=== PATIENT | female | born 1950 | race Caucasian/White ===

== ENCOUNTER → 2016-09-29 | Outpatient (CLI) | payer MEDICARE ==
[~2016-09-29] MED LIST: VITAMIN D PO
--- NOTE | 2016-09-29 15:59 | REP ---
REASON: Followup thyroid nodules. COMPARISON: Latest prior 08/26/2015. The patient is status post right thyroid lobectomy. Once again, there are three nodules in the left lobe, one cystic measuring 4 mm and two others subcentimeter and all stable. The left lobe of the thyroid gland measures 3.7 x 1.2 x 1.4 cm and the imaged portion of the isthmus measures 2 mm. The technologist imaged a 4 mm size area of increased echoes which was felt to be in the sternohyoid muscle. I cannot confirm this by imaging. IMPRESSION: 1. Stable thyroid gland as described above. 2. Bizarre appearing echogenic area of uncertain etiology. Although it appears to be intramuscular and possibly a lipoma this cannot be stated with certainty. Contrast enhanced neck CT is recommended. Signed by Jude Lam DO 09/29/2016 04:12 P
== END ==
LOC: M RAD 12:31
PROVIDERS: ATTEND Otolaryngology
DX: E04.1 Nontoxic single thyroid nodule (principal); R93.8 Abnormal findings on diagnostic imaging of other specified body structures

== ENCOUNTER → 2016-10-14 | Outpatient (CLI) | payer MEDICARE ==
[2016-10-14 10:09] LABS: CREATININE FOR GFR 0.81 MG/DL (0.55-1.02); GLOMERULAR FILTRATION RATE > 60.0 (>45)
[2016-10-19 06:53] LABS: BLOOD UREA NITROGEN 14 MG/DL (7-18)
== END ==
LOC: M LAB 08:54
PROVIDERS: ATTEND Otolaryngology
DX: R22.1 Localized swelling, mass and lump, neck (principal)

== ENCOUNTER → 2016-10-18 | Outpatient (CLI) | payer MEDICARE ==
[~2016-10-18] MED LIST changes: +ISOVUE-370 76% 100ML VIAL (Q9967) As Ordered ONE
--- NOTE | 2016-10-18 13:58 | REP ---
CT NECK WITH CONTRAST: HISTORY: Neck mass. CONTRAST: Isovue 370, 75 mL. Calcification is present in the right tonsil. This is secondary to previous inflammatory disease. The naso-, franklyn-, and hypopharynx, larynx and subglottic trachea are otherwise normal in appearance. The salivary glands are normal. The patient is status post right thyroidectomy. The left thyroid lobe is normal. Small lymph nodes less than 1 cm in size are present in the internal jugular chains, posterior triangles, submandibular and submental areas. Degenerative change is present in the cervical spine. Scarring is present in the lung apices. The visualized sinuses are clear. IMPRESSION: 1. The patient is status post right thyroidectomy. 2. There is no neck mass or adenopathy. Signed by Roshan Alas MD 10/18/2016 02:04 P
== END ==
LOC: M RAD 12:33
PROVIDERS: ATTEND Otolaryngology
DX: R22.1 Localized swelling, mass and lump, neck (principal)
CPT/HCPCS: 70491; Q9967

== ENCOUNTER → 2017-09-19 | Outpatient (CLI) | payer MEDICARE | LOC: M RAD 10:51 | DX: E04.1 Nontoxic single thyroid nodule (principal) | CPT/HCPCS: 76536 ==

== ENCOUNTER 2018-07-04 22:20 | Emergency (ER) | payer MEDICARE ==
[~2018-07-04] VITALS: Ht 154.9 cm; Wt 72.7 kg
[~2018-07-04 22:20] MED LIST changes: -ISOVUE-370 76% 100ML VIAL (Q9967) As Ordered ONE
[2018-07-04] MEDS ORDERED: LEVO75TA4 (22:27)
[2018-07-05 01:33] VITALS: BP 169/100
[2018-07-05] MEDS ORDERED: MACR100C43 PO (01:38)
[2018-07-05] MEDS ORDERED: PYRI1TAB5 PO (01:38)
[2018-07-05] MEDS ORDERED: NITROFURANTOIN (MACROBID) 100 MG CAP PO ONE (01:45)
[2018-07-05] MEDS ORDERED: PHENAZOPYRIDINE 100 MG TAB PO ONE (01:45)
== END 2018-07-05 03:23 | disposition home or self-care (01) ==
LOC: M ED 22:20
DX: N30.01 Acute cystitis with hematuria (principal); Z88.1 Allergy status to other antibiotic agents; Z88.2 Allergy status to sulfonamides; Z88.8 Allergy status to other drugs, medicaments and biological substances; Z79.899 Other long term (current) drug therapy

== ENCOUNTER → 2018-08-22 | Outpatient (REF) | payer MEDICARE ==
[~2018-08-22] MED LIST changes: +AUGMSUS PO; +GLUC1CAP9 PO; +LEVO75TA4; +MACR100C43 PO; +PEPC1TAB5 PO; +PYRI1TAB5 PO; +SUCR1SS PO
[2018-08-22 22:02] LABS: INFLUENZA A AMPLIFICATION NEGATIVE (NEGATIVE); INFLUENZA B AMPLIFICATION NEGATIVE (NEGATIVE)
== END ==
LOC: M LAB REF 09:26
PROVIDERS: ATTEND Physician Assistant
DX: J11.1 Influenza due to unidentified influenza virus with other respiratory manifestations (principal)

== ENCOUNTER 2018-08-24 11:21 | Emergency (ER) | payer MEDICARE ==
[~2018-08-24] VITALS: Ht 154.9 cm; Wt 72.7 kg
[~2018-08-24 11:21] MED LIST changes: -AUGMSUS PO; -GLUC1CAP9 PO; -PEPC1TAB5 PO; -SUCR1SS PO
[2018-08-24] MEDS ORDERED: GLUC1CAP9 PO (11:28)
[2018-08-24 11:53] LABS: BASO # 0.1 10^3/uL (0.0-0.2); BASO % 0.4 % (0.0-1.0); EOS % 0.2 % (0.0-3.0); HEMATOCRIT 37.4 % (36.0-47.0); HEMOGLOBIN 12.4 g/dl (12.0-15.5); LYMPH # 2.1 10^3/uL (1.5-4.5); LYMPH % 10.6 % (24.0-44.0); MEAN CORPUSCULAR HEMOGLOBIN 28.4 pg (27.0-33.0); MEAN CORPUSCULAR HGB CONC 33.2 g/dl (32.0-36.5); MEAN CORPUSCULAR VOLUME 85.6 fl (80.0-96.0); MONO # 1.5 10^3/uL (0.0-0.8); MONO % 7.8 % (0.0-5.0); NEUTROPHILS # 15.9 10^3/uL (1.8-7.7); NEUTROPHILS % 80.3 % (36.0-66.0); PLATELET COUNT, AUTOMATED 332 10^3/uL (150-450); RED BLOOD COUNT 4.37 10^6/uL (4.00-5.40); WHITE BLOOD COUNT 19.8 10^3/uL (4.0-10.0)
[2018-08-24 12:03] LABS: INR 1.41; PROTHROMBIN TIME 17.5 SECONDS (12.1-14.4)
--- NOTE | 2018-08-24 12:06 | REP ---
ORAL CHEST X-RAY: Single view. HISTORY: Chest pain. FINDINGS: EKG monitoring electrodes overlie the chest. Heart is not enlarged. The lungs are well inflated and clear. The pleural angles are sharp. Pulmonary vasculature is not increased. No significant bony abnormality. IMPRESSION: No active disease. Electronically Signed by Felix Rosa MD 08/24/2018 01:38 P
[2018-08-24 12:36] LABS: ALBUMIN 3.5 GM/DL (3.2-5.2); ALT/SGPT 19 U/L (12-78); BILIRUBIN,DIRECT 0.3 MG/DL (0.0-0.2); BILIRUBIN,TOTAL 1.1 MG/DL (0.2-1.0); BLOOD UREA NITROGEN 13 MG/DL (7-18); CALCIUM LEVEL 9.1 MG/DL (8.8-10.2); CARBON DIOXIDE LEVEL 26 MEQ/L (21-32); CHLORIDE LEVEL 101 MEQ/L (98-107); CK-MB VALUE MASS < 1.0 NG/ML (<3.6); CPK CREATINE PHOSPHOKINASE 255 U/L (26-192); CREATININE FOR GFR 0.87 MG/DL (0.55-1.30); GLOMERULAR FILTRATION RATE > 60.0 (>45); GLUCOSE, FASTING 114 MG/DL (70-100); MB/CK RELATIVE INDEX 0.39 (< OR =4); NT-PRO BNP 338 PG/ML (<125); POTASSIUM SERUM 3.4 MEQ/L (3.5-5.1); SODIUM LEVEL 138 MEQ/L (136-145); TOTAL PROTEIN 8.1 GM/DL (6.4-8.2); TROPONIN I < 0.02 NG/ML (< 0.10)
[2018-08-24] MEDS ORDERED: SUCRALFATE SUSP 1GM/10ML UD PO ONE (12:45)
[2018-08-24] MEDS ORDERED: ISOVUE-370 76% 100ML VIAL (Q9967) As Ordered ONE (13:55)
[2018-08-24] MEDS ORDERED: NS 1,000 ML IV ONE (14:00)
--- NOTE | 2018-08-24 14:24 | REP ---
Clinical: Acute chest pain . Technique: Axial contrast enhanced images from the thoracic inlet to the upper abdomen using 100 ml Isovue 370 intravenous contrast material with multiplanar re-formations. Findings: Satisfactory enhancement of the pulmonary vasculature is achieved and no filling defects are identified to suggest pulmonary embolus. Lung mccracken demonstrate minimal bibasilar atelectasis (left greater than right) along with mild apical and scattered chronic interstitial changes. No focal consolidation. No effusion. No pneumothorax. No adenopathy. Further evaluation of the mediastinum demonstrates normal thoracic aorta, heart and pericardium. Surrounding musculoskeletal structures intact Impression: No evidence for pulmonary embolus. Mild bibasilar atelectasis (left greater than right). Electronically Signed by Rodrigue Cuellar MD 08/24/2018 02:17 P
--- NOTE | 2018-08-24 16:01 | REP ---
CT NECK WITHOUT CONTRAST: HISTORY: Difficult swallowing. COMPARISON: 10/18/2016. The patient is status post right thyroidectomy. Calcification is present in the right tonsil. This is secondary to previous inflammatory disease. There is very minimal thickening of the epiglottis. This may be secondary to inflammation or neoplasm. The nasopharynx, larynx and subglottic trachea are normal in appearance. The salivary glands and left thyroid lobe are normal in size and density. Small lymph nodes less than 1 cm in size are present in the internal jugular chains, posterior triangles, submandibular and submental areas. Atherosclerotic calcification is present at the parotid bifurcation. Degenerative change is present in the cervical spine. The lung apices are clear. The visualized sinuses are clear. IMPRESSION: 1. The patient is status post right thyroidectomy. 2. There is very minimal thickening of the epiglottis. This may be secondary to inflammation or possibly neoplasm. Electronically Signed by Roshan Alas MD 08/24/2018 04:03 P
[2018-08-24] MEDS ORDERED: E-Z-GAS II EFFERVESCENT PACKET (SODIUM BICARB./CITRIC ACID/SIMETHICONE) As Ordered ONE (16:06)
[2018-08-24] MEDS ORDERED: E-Z-HD 98% w/w 340GM SUSP BTL As Ordered ONE (16:06)
[2018-08-24] MEDS ORDERED: E-Z-PAQUE 96% w/w SUSP 176GM BTL As Ordered ONE (16:07)
[2018-08-24] MEDS ORDERED: dexameTHASONE 20 MG/5 ML VIAL (J1100) IV ONE (17:00)
[2018-08-24] MEDS ORDERED: AUGMSUS PO (17:42)
[2018-08-24] MEDS ORDERED: PEPC1TAB5 PO (17:44)
[2018-08-24] MEDS ORDERED: AUGMENTIN BID 400MG/5ML SUSP 50ML BTL PO ONE (17:45)
[2018-08-24] MEDS ORDERED: SUCR1SS PO (18:28)
--- NOTE | 2018-08-24 20:34 | REP ---
Esophagram The procedure was performed under the direct supervision of Dr. Cuellar. The images were reviewed with Dr. Cuellar. Liquid barium was given in the erect position as well as liquid barium in the prone oblique positions in order to perform a single contrast esophagram examination. During the oral and pharyngeal stages of deglutition there is laryngeal penetration. Esophageal transport is prompt and efficient and there is no esophagitis stricture mucosal ring or hiatal hernia. Gastroesophageal reflux is not demonstrated on this examination. Impression: There is laryngeal penetration, otherwise, unremarkable single contrast esophagram examination. 1.3 minutes of fluoro time was utilized for this procedure. Reviewed by WILMER Andrade 08/24/2018 04:47 P Electronically Signed by Rodrigue Cuellar MD 08/24/2018 08:26 P
--- NOTE | 2018-08-24 20:50 | ECGEPIP ---
Stationary ECG Study [facility] - ED Test Date: 2018-08-24 Pat Name: CORI JAVED Department: Room: - Gender: F [employer]: : 1950 Requested By: Candie Agarwal Order Number: [id number] Reading MD: Tomas Valdez Measurements Intervals [place] Rate: 89 P: 50 WI: 152 QRS: 21 QRSD: 95 T: 57 QT: 357 QTc: 435 Interpretive Statements SINUS RHYTHM POSSIBLE INFERIOR MYOCARDIAL INFARCTION, PROBABLY OLD Nonspecific ST-T wave abnormalities Comparison tracing not on file Electronically Signed On 08-24-2018 20:50:14 EDT by Tomas Valdez
[2018-08-24 20:56] VITALS: BP 129/78
--- NOTE | 2018-08-28 14:27 | ED PDOC ---
Post-Departure Follow-Up dr mcgee and ivonne mendez faxed formal report of ct neck for fu sophiag Ruth Cervantes MD Aug 28, 2018 14:27
== END 2018-08-24 20:59 | disposition home or self-care (01) ==
LOC: M ED 11:21
DX: R13.10 Dysphagia, unspecified (principal); R94.31 Abnormal electrocardiogram [ECG] [EKG]; Z80.0 Family history of malignant neoplasm of digestive organs; Z88.1 Allergy status to other antibiotic agents; Z88.2 Allergy status to sulfonamides; Z88.8 Allergy status to other drugs, medicaments and biological substances
CPT/HCPCS: 70490; 71045; 71275; 74220; 80048; 80076; 82550; 82553; 83880; 84443; 84484; 85025; 85610; 93005; 93041; 96374; 99285; J1100; Q9967

== ENCOUNTER → 2018-09-28 | Outpatient (CLI) | payer MEDICARE ==
[~2018-09-28] MED LIST changes: +AUGMSUS PO; +GLUC1CAP9 PO; +PEPC1TAB5 PO; +SUCR1SS PO
--- NOTE | 2018-09-28 15:10 | REP ---
HISTORY: Nontoxic thyroid nodule. COMPARISON: Multiple, the latest 05/26/2017 which showed multiple solid and complex nodules, the largest 8 mm, 5 mm, and 7 mm. Patient is status post right hemithyroidectomy. Once again, there are multiple complex cystic and solid nodules. The largest on the left now measures 1 cm increased from the prior examination by a few millimeters while the others are stable. The left lobe measures 4 x 1.2 x 1.3 cm and the isthmus on the left measures 2 mm. There is no discernable thyroid tissue on the right. IMPRESSION: Nodules as above. Electronically Signed by Jude Lam DO 09/28/2018 03:21 P
== END ==
LOC: M RAD 10:48
PROVIDERS: ATTEND Otolaryngology
DX: E04.1 Nontoxic single thyroid nodule (principal)

== ENCOUNTER → 2018-10-18 | Outpatient (CLI) | payer MEDICARE ==
[~2018-10-18] MED LIST changes: +LIDOCAINE 1% MDV 20ML VIAL As Ordered ONE
--- NOTE | 2018-10-19 16:20 | REP ---
Ultrasound-guided left lobe thyroid biopsy This procedure was performed by WILMER Wagner, under the personal supervision of Dr. Brambila. The patient has a history of multiple complex cystic and solid nodules, with one increased in size in the lower pole on an ultrasound dated 09/28/2018. The risks and the benefits of the procedure were explained to the patient and informed consent was obtained both verbally and written. Directly prior to the start of the procedure, a formal time out was completed in the procedure room. The left lobe thyroid nodule in the lower pole was localized using ultrasound guidance. The skin was prepped and draped in a sterile fashion. 1% lidocaine was used as a local anesthetic. Using ultrasound guidance 4 fine-needle aspirations were obtained using 25 gauge needles of the left lobe thyroid nodule. The patient tolerated the procedure well and there were no immediate complications. After the appropriate amount of monitored convalescence the patient was discharged from the department. Reviewed by WILMER Wagner 10/18/2018 05:23 P Electronically Signed by Sebastian Brambila MD 10/19/2018 04:11 P
== END ==
LOC: M RADPRO 12:20
PROVIDERS: ATTEND Otolaryngology
DX: E04.1 Nontoxic single thyroid nodule (principal); Z79.899 Other long term (current) drug therapy; Z88.8 Allergy status to other drugs, medicaments and biological substances

== ENCOUNTER → 2021-03-24 | Outpatient (CLI) | payer MEDICARE ==
[~2021-03-24] MED LIST changes: -LEVO75TA4; +LEVO75TA4 PO; -LIDOCAINE 1% MDV 20ML VIAL As Ordered ONE; +VIAC1CHW PO; +VITA500T15 PO
== END ==
LOC: M LABSMTC 10:13
PROVIDERS: ATTEND Anesthesiology
DX: Z01.812 Encounter for preprocedural laboratory examination (principal); Z20.822 Contact with and (suspected) exposure to COVID-19

== ENCOUNTER 2021-03-29 12:03 | Day surgery (SDC) | payer MEDICARE ==
[~2021-03-29] VITALS: Ht 154.9 cm; Wt 74.8 kg
[~2021-03-29 12:03] MED LIST changes: +LIDOCAINE 2% 100MG/5ML SDV (FOR ANES.) As Ordered ONE; +NS 1,000 ML IV ONE; +propofoL 200 MG/20 ML VIAL As Ordered ONE
--- OUTSIDE RECORDS SUMMARY | 2021-03-29 12:09 | CCD | Continuity of Care Document ---
Author Author Blanche CULLEN M.D Organization Unknown Address [address] [place] [address] Phone [phone] Care Team Providers Care Clam Shucker Name Role Phone [facility] [phone] Problems Active Problems Provider Date Screening for malignant neoplasm of colon Carlo farley M.D. Onset: 02/09/2021 Social History Type Date Description Comments Sex Unknown ETOH Use Denies alcohol use Tobacco Use Start: Unknown End: Unknown Patient is a former smoker 1977 Allergies and adverse reactions Active Allergies Criticality Reaction | Severity Comments Date Cephalosporins Unable to assess criticality 02/09/2021 Sulfa Unable to assess criticality 02/09/2021 Mafenide Unable to assess criticality 02/09/2021 Salicylates Unable to assess criticality 02/09/2021 Amoxicillin / Clavulanate Unable to assess criticality 02/09/2021 Carafate Unable to assess criticality 02/09/2021 Famotidine Unable to assess criticality 02/09/2021 Medications Active Medications SIG Qnty Indications Ordering Provide r Date Sutab [id number] Tablets as directed 1box Carlo Cullen M.D. 02/09/2021 Levothyroxine Sodium 75mcg Tablets Take 1 Tablet By Mouth Every Day Anthony Mcgill Vitamin D 50mcg (1999) Capsules Unknown Immunizations Description No Information Available Vital Signs Date Vital Result Comment 02/09/2021 10:20am Height 61 inches 5'1" Weight 169.00 lb BP Systolic 129 mmHg BP Diastolic 83 mmHg Heart Rate 70 /min BMI (Body Mass Index) 31.9 kg/m2 Weight 76.658 kg Body Temperature 97.6 F Results Description No Information Available Procedures Description No Information Available Medical Devices Description No Information Available Encounters Description No Information Available Assessments Description No Information Available Plan of Treatment Future Appointment(s):* 03/29/2021 1:45 pm - Carlo Cullen M.D. at Main Office Functional Status Description No Information Available Mental Status Description No Information Available Referrals Description No Information Available
--- OUTSIDE RECORDS SUMMARY | 2021-03-29 12:09 | CCD | Continuity of Care Document ---
Author Author Blanche CULLEN M.D Organization Unknown Address [address] [place] [address] Phone [phone] Care Team Providers Care Navy Seal Name Role Phone [facility] Mc[facility] [phone] Problems Active Problems Provider Date Screening for [...] Qnty Indications Ordering Provide r Date Sutab [id number] Tablets as directed 1box Carlo Cullen M.D. [...] Available Encounters Description No Information Available Assessments Date Code Description Provider 02/09/2021 R19.5 Occult blood in stools Carlo Cullen M.D. Plan of Treatment Future Appointment(s):* 03/15/2021 6:45 am - Betty at Main Office * 03/29/2021 1:45 pm - Carlo Cullen M.D. at Main Office 02/09/2021 - Carlo Cullen M.D.* R19.5 Occult blood in stools* Comments:* 70 yo wf who presents for a colonoscopy due to a h/o a positive Fit. No c/o abdominal pain, weight loss, change in bowel habits, or rectal bleeding. No family h/o colon cancer. No h/o chest pain, or sob. Plan:1. Colonoscopy to cecum2. Informed consent. Functional Status Description No Information Available Mental Status Description No Information Available Referrals Description No Information Available
--- OUTSIDE RECORDS SUMMARY | 2021-03-29 12:09 | CCD | Continuity of Care Document ---
Author Author Blanche MCGILL PA Organization Unknown Address [address] [address] Phone [phone] Care Team Providers Care Manager Heart Failure Name Role Phone Yasir Avery II, MD [facility] Austin Arreaga MD [facility] [phone] Wenceslao Varner MD [facility] [phone] Anthony Mcgill [facility] [phone] Problems Description No Information Available Social History Type Date Description Comments Sex Unknown ETOH Use Denies alcohol use Tobacco Use Start: Unknown End: Unknown Patient is a former smoker QUIT SMOKED X 15YRS 2 PACKS A DAY Allergies and adverse reactions Active Allergies Criticality Reaction | Severity Comments Date Cephalsporins Unable to assess criticality 2016 Sulfa Unable to assess criticality 2016 Salicylates Unable to assess criticality 2016 Amoxicillin / Clavulanate Unable to assess criticality face got bright red and swollen 01/10/2019 Carafate Unable to assess criticality face got ivett ght red and swollen 01/10/2019 Famotidine Unable to assess criticality face got ivett ght red and swollen 01/10/2019 Inactive Allergies NKDA Unable to assess criticality 08/04/2010 Medications Active Medications SIG Qnty Indications Ordering Provide r Date Vitamin D3 Super Strength 2000Unit Tablets 1 by mouth every day Odalys Mulligan FNP 08/12/2014 Levothyroxine Sodium 75mcg Tablets Take 1 Tablet By Mouth Every Day 90tabs SHRAVAN Flowers JR 07/14/2014 Medications Administered in Office Medication SIG Qnty Indications Ordering Provider Date Covid-19 vaccine, Unspecified Inj ection Unknown 08/21/2020 Immunizations CPT Code Status Date Vaccine Reaction Lot # [id number] Given 03/24/2015 PPD PPD read as neg 11-5-15 ( 0mm) Ric Wiley RN [id number] Given 08/07/2013 Adacel- Tetanus Diphtheria Pertussis [id number] U-Flu Refused 01/23/2020 Influenza,Unspecified 80084 Refused 01/23/2020 Shingrix Zoster Vaccine (HZV), Recombinant, Subunit, Adjuvanted [id number] Refused 01/23/2020 Pneumovax 23 [id number] Refused 01/23/2020 Prevnar 13 [id number] Refused 01/08/2018 Shingrix Zoster Vaccine (HZV), Recombinant, Subunit, Adjuvanted 25345 Refused 01/08/2018 Zoster Vaccine 47587 Refused 01/08/2018 Pneumovax 23 18684 Refused 01/08/2018 Influenza Vaccin e Quadrivalent Preser/Antibiotic Free Im Use 88770 Refused 01/08/2018 Prevnar 13 Vital Signs Date Vital Result Comment 01/21/2021 10:55am BP Systolic 140 mmHg BP Diastolic 76 mmHg Heart Rate 80 /min Height 61.50 inches 5'1.50" Weight 168.00 lb O2 % BldC Oximetry 97 % BMI (Body Mass Index) 31.2 kg/m2 01/23/2020 1:24pm BP Systolic 134 mmHg BP Diastolic 68 mmHg Heart Rate 75 /min Height 61.50 inches 5'1.50" Weight 168.38 lb O2 % BldC Oximetry 98 % RM Air BMI (Body Mass Index) 31.3 kg/m2 Results Test Acquired Date Facility Test Result H/L Range Note Coronavirus 2019 Nasopharygeal 03/24/2021 [facility] [address] [place] [address] [phone] Coronavirus 2019 Nasopharygeal ASSAY INFORMATIO <SEE N OTE> 1 Complete Blood Count 01/21/2021 [employer] [employer] Director [employer] Business Systems Developer: [place] [address] [phone] WBC 7.8 x10*3/UL 4.1 - 10.9 RBC 4.78 x10*6/UL 4.20 - 6.30 Hemoglobin 13.6 g/dL 12.0 - 18.0 Hematocrit 40.1 % 37.0 - 51.0 MCV 83.9 fL 80.0 - 97.0 MCH 28.5 pg 26.0 - 32.0 MCHC 34.0 g/dL 31.0 - 38.0 RDW 13.5 % 11.6 - 13.7 PLT 380 x10*3/UL 140 - 440 MPV 8.0 FL 7.8 - 11.0 Lymph % 34.7 % 10.0 - 58.5 Mid % 7.4 % 1.7 - 9.3 Neut % 57.9 % 37.0 - 92.0 Lymph # 2.7 x10*3/UL 0.6 - 4.1 Mid # 0.6 x10*3/UL 0.1 - 0.6 Neut # 4.5 x10*3/UL 2.0 - 7.8 Basic Metabolic Panel 01/21/2021 [facility] Business Systems Developer: [place] [address] [phone] Glucose 118 mg/dL High 74 - 99 2 BUN 18 mg/dL 7 - 18 Creatinine 0.9 mg/dL 0.6 - 1.3 Sodium 139 mEq/L 136 - 145 Potassium 3.7 mEq/L 3.5 - 5.1 Chloride 105 mEq/L 98 - 107 Carbon Dioxide 27 mEq/L 21 - 32 Calcium 9.0 mg/dL 8.5 - 10.1 GFR >= 60 mL/min >60 GFR >= 60 mL/min >60 3 Lipid Profile 01/21/2021 [facility] Business Systems Developer: Dr Liban [place], [place] [id number] [phone] Cholesterol 185 mg/dL 131 - 200 Triglycerides 122 mg/dL 30 - 150 HDL Cholesterol 40 mg/dL 35 - 60 LDL (Calculated) 121 CALC 50 - 159 Laboratory test finding 01/21/2021 [employer] [employer] [facility], k[employer] Business Systems Developer: [place] [address] [phone] Thyroid Stimulating Hormone 2.21 uIU/mL 0.3 6 - 3.74 Laboratory test finding 01/21/2021 [employer] [employer] [facility], kenzie Business Systems Developer: [place] [address] [phone] Vitamin D 25-Hydroxy 47.5 ng/ml 24.0 - 80.0 4 Laboratory test finding 12/17/2020 [facility] [employer] Business Systems Developer: [place] [address] [phone] Fecal Immunochemical Test POSITIVE Abnormal Negati ve 1 ASSAY INFORMATION: Real Time RT-PCR NOTE: The COVID-19 assay has been cleared by the U.S. Food and Drug Administration under the Emergency Use Authorization (EUA). [facility] and [facility] are designated as high complexity laboratories by the Clinical Laboratory Improvement Amendments of 1988(CLIA) and are qualified to perform this test. Not Detected 2 100-125 mg/dL PRE-DIABET ES/FASTING >126 mg/dL DIABETES/FASTING 3 CHRONIC KIDNEY DISEASE STAGI NG PER NKF STAGE I & II GFR >= 60 NORMAL TO MILDLY DECREASED STAGE III GFR 30-59 MODERATELY DECREASED STAGE IV GFR 15-29 SEVERELY DECREASED STAGE V GFR <15 VERY LITTLE GFR LEFT ESRD GFR <15 ON GOLD BUYER 4 This test was performed [employer] IP Vitamin D immunoassay kit. Values obtained with different assay methods should not be used interchangeably. Procedures Date Code Description Status 02/17/2021 [id number] Bone Mineral Density Test Comple evan 02/17/2021 [id number] Mammogram Completed 01/21/2021 21364 Est Prevent Med (65Yrs&Ovr) Comp leted 01/02/2020 [id number] Mammogram Completed 12/27/2018 [id number] Mammogram Completed 12/27/2017 [id number] Mammogram Completed 11/07/2016 [id number] Mammogram Completed 03/17/2016 [id number] Colonoscopy Completed 11/05/2015 [id number] Mammogram Completed 10/30/2014 [id number] Mammogram Completed 10/24/2013 [id number] Mammogram Completed Medical Devices Description No Information Available Encounters Type Date Location Provider Dx Diagnosis Office Visit [facility]21[facility] 11[facility] Z00.00 Encntr for general adult med ical exam w/o abnormal findings E03.9 Hypothyroidism, unspecified E55.9 Vitamin D deficiency, unspec ified H91.93 Unspecified hearing loss, bi lateral R03.0 Elevated blood-pressure read ing, w/o diagnosis of htn Z80.0 Family history of malignant neoplasm of digestive organs M75.02 Adhesive capsulitis of left shoulder M25.551 Pain in right hip Z13.89 Encounter for screening for other disorder Assessments Date Code Description Provider 01/21/2021 Z00.00 Encounter for genera l adult medical examination without abnormal findings SHRAVAN Flowers JR 01/21/2021 E03.9 Hypothyroidism, unspecified Robe SHRAVAN Zhou JR 01/21/2021 E55.9 Vitamin D deficiency, unspecifie d SHRAVAN Flowers JR 01/21/2021 H91.93 Unspecified hearing loss, bilate ral SHRAVAN Flowers JR 01/21/2021 R03.0 Elevated blood-press ure reading, without diagnosis of hypertension SHRAVAN Flowers JR 01/21/2021 Z80.0 Family history of malignant neop lasm of digestive organs SHRAVAN Flowers JR 01/21/2021 M75.02 Adhesive capsulitis of left shou lder SHRAVAN Flowers JR 01/21/2021 M25.551 Pain in right hip SHRAVAN Hansen JR 01/21/2021 Z13.89 Encounter for screening for othe r disorder SHRAVAN Flowers JR 12/17/2020 Z12.12 Encounter for screening for juanjo gnant neoplasm of rectum SHRAVAN Flowers JR Plan of Treatment Future Appointment(s):* 01/25/2022 12:40 pm - Nurse #2 at [facility] * 01/25/2022 1:00 pm - SHRAVAN Flowers JR at [facility] 01/21/2021 - SHRAVAN Flowers JR* Z00.00 Encounter for general adult medical examination without abnormal findings* Comments:* Labs are pending. SBE discussed and preformed monthly with proper technique reviewed. Heart healthy Mediterranean diet and 150 minutes of aerobic exercise discussed and reinforced as well as incorporated resistance training. RTC as scheduled or sooner PRN. Mammogram and colonoscopy to be updated. COVID vaccine x1 (J&J). She refuses all other vaccinations including Flu and pneumonia. * E03.9 Hypothyroidism, unspecified* Comments:* TSH pending, continue current medication regimen at this time, adjust as needed based on results. * E55.9 Vitamin D deficiency, unspecified* Comments:* She does continue supplementations, there is a Vitamin D pending. * H91.93 Unspecified hearing loss, bilateral* Comments:* Refer down to [facility] for further evaluations. She does already have hearing aids, but she needs yearly examinations. * R03.0 Elevated blood-pressure reading, without diagnosis of hypertension* Comments:* Pressure is good at today's visit. No further investigation needed. * Z80.0 Family history of malignant neoplasm of digestive organs* Comments:* Update colonoscopy scheduled for the end of the month. * M75.02 Adhesive capsulitis of left shoulder* Comments:* She has had Cortisone for this in the past, currently she is just dealing with it, she is doing well. * M25.551 Pain in right hip* Comments:* She continues to take Tylenol Arthritis on the rare occasion that she needs it. * Z13.89 Encounter for screening for other disorder * All * Comments:* Total time spent with patient: 44 minutes, that includes reviewing the chart and correspondences with other specialties. Patient verbalized understanding and agreement with the plan. We will phone her with pertinent labs. She can return to the clinic on a yearly basis or sooner if needed. She had no further questions to the best of my knowledge. Functional Status Description No Information Available Mental Status Description No Information Available Referrals Refer to Reason for Referral Status Appt Date Carlo Cullen MD CONSULT COLONOSCOPY/POSITIVE FIT TEST Shravan peralta Notified 02/09/[address] [place] [id number] [phone]
--- OUTSIDE RECORDS SUMMARY | 2021-03-29 12:09 | CCD | Continuity of Care Document ---
Author Author Blanche MCGILL PA Organization Unknown Address [address] [address] Phone [phone] Care Team Providers Care Map Editor Name Role Phone Yasir Avery II, MD AUTM [phone] Austin Arreaga MD AUTM [phone] Wenceslao Varner MD AUTM [phone] Anthony Mcgill AUTM [phone] Problems Description No Information Available Social History Type Date Description Comments Sex Unknown ETOH Use Denies alcohol use Tobacco Use Start: Unknown End: Unknown Patient is a former smoker QUIT SMOKED X 15YRS 2 PACKS A DAY Allergies, Adverse Reactions, Alerts Active Allergies Criticality Reaction | Severity Comments [...] Code Status Date Vaccine Reaction Lot # [id number] Given 03/24/2015 PPD PPD read as neg 11-5-15 ( 0mm) Ric Wiley, RN [id number] Given 08/07/2013 Adacel- Tetanus Diphtheria Pertussis (Age64 & Under) [id number] U-Flu Refused 01/23/2020 Influenza,Unspecified 53142 Refused 01/23/2020 Shingrix Zoster Vaccine (HZV), Recombinant, Subunit, Adjuvanted 24203 Refused 01/23/2020 Pneumovax 23 84245 Refused 01/23/2020 Prevnar 13 87016 Refused 01/08/2018 Shingrix Zoster Vaccine (HZV), Recombinant, Subunit, Adjuvanted 97782 Refused 01/08/2018 Zoster Vaccine 22792 Refused 01/08/2018 Pneumovax 23 74493 Refused 01/08/2018 Influenza Vaccin e Quadrivalent Preser/Antibiotic Free [place] Use 74508 Refused 01/08/2018 Prevnar 13 Vital Signs Date [...] Date Facility Test Result H/L Range Note Complete Blood Count 01/21/2021 [facility] Instant Printer Operator: [place] [address] [phone] WBC 7.8 x10*3/UL 4.1 - 10.9 RBC [...] 2.0 - 7.8 Basic Metabolic Panel 01/21/2021 [facility] Instant Printer Operator: Dr Liban [place] [address] [phone] Glucose 118 mg/dL High 74 - 99 1 BUN 18 mg/dL 7 - 18 Creatinine 0.9 mg/dL 0.6 - 1.3 Sodium 139 mEq/L 136 - 145 Potassium 3.7 mEq/L 3.5 - 5.1 Chloride 105 mEq/L 98 - 107 Carbon Dioxide 27 mEq/L 21 - 32 Calcium 9.0 mg/dL 8.5 - 10.1 GFR >= 60 mL/min >60 GFR >= 60 mL/min >60 2 Lipid Profile 01/21/2021 [facility] Instant Printer Operator: Dr Liban [place] [address] [phone] Cholesterol 185 mg/dL 131 - 200 Triglycerides 122 mg/dL 30 - 150 HDL Cholesterol 40 mg/dL 35 - 60 LDL (Calculated) 121 CALC 50 - 159 Laboratory test finding 01/21/2021 [facility] Instant Printer Operator: Dr Liban [place] [address] [phone] Thyroid Stimulating Hormone 2.21 uIU/mL 0.3 6 - 3.74 Laboratory test finding 01/21/2021 [facility], kenzie Instant Printer Operator: [place] [address] [phone] Vitamin D 25-Hydroxy 43.1 ng/ml 24.0 - 80.0 3 Laboratory test finding 12/17/2020 [facility] kenzie lindsey Instant Printer Operator: [place] [address] [phone] Fecal Immunochemical Test POSITIVE Abnormal Negati ve 1 100-125 mg/dL PRE-DIABET ES/FASTING >126 mg/dL DIABETES/FASTING 2 CHRONIC KIDNEY DISEASE STAGI NG PER NKF STAGE I & II GFR >= 60 NORMAL TO MILDLY DECREASED STAGE III GFR 30-59 MODERATELY DECREASED STAGE IV GFR 15-29 SEVERELY DECREASED STAGE V GFR <15 VERY LITTLE GFR LEFT ESRD GFR <15 ON CORPORATE TRAVEL COUNSELOR 3 This test was performed [employer] Vitamin D immunoassay kit. Values obtained with different assay methods should not be used interchangeably. Procedures Date Code Description Status 01/21/2021 93545 Est Prevent Med (65Yrs&Ovr) Comp leted 01/02/2020 [id number] Mammogram Completed 12/27/2018 [id number] Mammogram Completed 12/27/2017 [id number] Mammogram Completed 11/07/2016 [id number] Mammogram Completed 03/17/2016 [id number] Colonoscopy Completed 11/05/2015 [id number] Mammogram Completed 10/30/2014 [id number] Mammogram Completed 10/24/2013 [id number] Mammogram Completed Medical Devices Description No Information Available Encounters Type Date Location Provider Dx Diagnosis Office Visit 01/21/2021 11:00a [facility] Luis M Mcgill JR PA Z00.00 Encntr for general adult med [...] SHRAVAN Flowers JR 01/21/2021 E03.9 Hypothyroidism, unspecified SHRAVAN Dempsey JR 01/21/2021 E55.9 Vitamin D deficiency, unspecifie [...] 01/25/2022 12:40 pm - Nurse #2 at [facility] * 01/25/2022 1:00 pm - SHRAVAN Flowers JR at [facility] 01/21/2021 - SHRAVAN Flowers JR* [...] hearing loss, bilateral* Comments:* Refer down to [facility] for further evaluations. She does already [...] COLONOSCOPY/POSITIVE FIT TEST Shravan peralta Notified 02/09/[address] [place] [address] [phone]
--- OUTSIDE RECORDS SUMMARY | 2021-03-29 12:09 | CCD | Continuity of Care Document ---
Author Author Blanche MCGILL PA Organization Unknown Address [address] [address] Phone [phone] Care Team Providers Care Truck Service Technician Name Role Phone Yasir Avery II, MD AUTM [phone] Austin Arreaga MD AUTM [phone] Wenceslao Varner MD AUTM [phone] Anthony Mcgill AUTM [phone] Problems Description No Information Available Social History [...] Code Status Date Vaccine Reaction Lot # [id number] Given 03/24/2015 PPD PPD read as neg 11-5-15 ( 0mm) Ric Wiley, RN [id number] 94897 Given 08/07/2013 Adacel- Tetanus Diphtheria Pertussis (Age64 & Under) [id number] U-Flu Refused 01/23/2020 Influenza,Unspecified 19719 Refused 01/23/2020 Shingrix Zoster Vaccine (HZV), Recombinant, Subunit, Adjuvanted 96569 Refused 01/23/2020 Pneumovax 23 66063 Refused 01/23/2020 Prevnar 13 45547 Refused 01/08/2018 Shingrix Zoster Vaccine (HZV), Recombinant, Subunit, Adjuvanted 03803 Refused 01/08/2018 Zoster Vaccine 79571 Refused 01/08/2018 Pneumovax 23 07118 Refused 01/08/2018 Influenza Vaccin e Quadrivalent Preser/Antibiotic Free Im Use 54298 Refused 01/08/2018 Prevnar 13 Vital Signs Date [...] H/L Range Note Complete Blood Count 01/21/2021 [facility] Founder Chairman And Chief Creative Officer: [place] [address] [phone] WBC 7.8 x10*3/UL 4.1 - 10.9 RBC [...] 2.0 - 7.8 Basic Metabolic Panel 01/21/2021 [facility] Founder Chairman And Chief Creative Officer: [place] [address] [phone] Glucose 118 mg/dL High 74 - 99 [...] 60 mL/min >60 2 Lipid Profile 01/21/2021 [facility] Founder Chairman And Chief Creative Officer: Dr Liban [place] [address] [phone] Cholesterol 185 mg/dL 131 - 200 Triglycerides 122 mg/dL 30 - 150 HDL Cholesterol 40 mg/dL 35 - 60 LDL (Calculated) 121 CALC 50 - 159 Laboratory test finding 01/21/2021 [facility] Founder Chairman And Chief Creative Officer: Dr Liban [place] [address] [phone] Thyroid Stimulating Hormone 2.21 uIU/mL 0.3 6 - 3.74 Laboratory test finding 01/21/2021 [facility], kenzie Founder Chairman And Chief Creative Officer: [place] [address] [phone] Vitamin D 25-Hydroxy 43.1 ng/ml 24.0 - 80.0 3 Laboratory test finding 12/17/2020 [facility] kenzie lindsey Founder Chairman And Chief Creative Officer: [place] [address] [phone] Fecal Immunochemical Test POSITIVE Abnormal Negati ve 1 100-125 mg/dL PRE-DIABET ES/FASTING >126 mg/dL DIABETES/FASTING 2 CHRONIC KIDNEY DISEASE STAGI NG PER NKF STAGE I & II GFR >= 60 NORMAL TO MILDLY DECREASED STAGE III GFR 30-59 MODERATELY DECREASED STAGE IV GFR 15-29 SEVERELY DECREASED STAGE V GFR <15 VERY LITTLE GFR LEFT ESRD GFR <15 ON PLATFORM WORKER 3 This test was performed [employer] Vitamin D immunoassay kit. Values obtained with different assay methods should not be used interchangeably. Procedures Date Code Description Status 01/02/2020 [id number] Mammogram Completed 12/27/2018 [id number] Mammogram Completed 12/27/2017 [id number] Mammogram Completed 11/07/2016 [id number] Mammogram Completed 03/17/2016 [id number] Colonoscopy Completed 11/05/2015 [id number] Mammogram Completed 10/30/2014 [id number] Mammogram Completed 10/24/2013 [id number] Mammogram Completed Medical Devices Description No Information Available Encounters Description No Information Available Assessments Date Code Description Provider 01/21/2021 Z00.00 Encounter for genera l adult medical examination without abnormal findings SHRAVAN Flowers JR 01/21/2021 E03.9 Hypothyroidism, unspecified Robe SHRAVAN Zhou JR 01/21/2021 E55.9 Vitamin D deficiency, unspecifie d SHRAVAN Flowers JR 01/21/2021 M75.02 Adhesive capsulitis of left shou lder SHRAVAN Flowers JR 01/21/2021 H91.93 Unspecified hearing loss, bilate ral SHRAVAN Flowers JR 01/21/2021 R03.0 Elevated blood-press ure reading, without diagnosis of hypertension SHRAVAN Flowers JR 01/21/2021 Z80.0 Family history of malignant neop lasm of digestive organs SHRAVAN Flowers JR 01/21/2021 Z12.12 Encounter for screening for juanjo gnant neoplasm of rectum SHRAVAN lFowers JR 01/21/2021 Z13.820 Encounter for screening for oste oporosis SHRAVAN Flowers JR 01/21/2021 M25.551 Pain in right hip SHRAVAN Hansen JR 12/17/2020 Z12.12 Encounter for screening for juanjo gnant neoplasm of rectum SHRAVAN Flowers JR Plan of Treatment Future Appointment(s):* 01/25/2022 12:40 pm - Nurse #2 at [facility] * 01/25/2022 1:00 pm - SHRAVAN Flowers JR at [facility] 01/21/2021 - SHRAVAN Flowers JR* [...] there is a Vitamin D pending. * M75.02 Adhesive capsulitis of left shoulder* Comments:* She has had Cortisone for this in the past, currently she is just dealing with it, she is doing well. * H91.93 Unspecified hearing loss, bilateral* Comments:* Refer down to [facility] for further evaluations. She does already have hearing aids, but she needs yearly examinations. * R03.0 Elevated blood-pressure reading, without diagnosis of hypertension* Comments:* Pressure is good at today's visit. No further investigation needed. * Z80.0 Family history of malignant neoplasm of digestive organs* Comments:* Update colonoscopy scheduled for the end of the month. * Z12.12 Encounter for screening for malignant neoplasm of rectum* Comments:* above. * Z13.820 Encounter for screening for osteoporosis* New Xrays:* Dexa/Bone Density, Ordered: 01/21/21 * Comments:* DEXA ordered. * M25.551 Pain in right hip* Comments:* She continues to take Tylenol Arthritis on the rare occasion that she needs it. * All * Comments:* Total time spent [...] COLONOSCOPY/POSITIVE FIT TEST Shravan peralta Notified 02/09/[address] [place] [address] [phone]
--- OUTSIDE RECORDS SUMMARY | 2021-03-29 12:09 | CCD | Continuity of Care Document ---
Author Author Blanche MCGILL PA Organization Unknown Address [address] [address] Phone [phone] Care Team Providers Care Railcar Foreman Name Role Phone Yasir Avery II, MD AUTM Austin Arreaga MD AUTM [phone] Wenceslao Varner MD AUTM [phone] Anthony Mcgill AUTM [phone] Problems Description No Information Available Social History [...] Code Status Date Vaccine Reaction Lot # [id number] Given 03/24/2015 PPD PPD read as neg 11-5-15 ( 0mm) Ric Wiley, RN [id number] Given 08/07/2013 Adacel- Tetanus Diphtheria Pertussis (Age64 & Under) [id number] U-Flu Refused 01/23/2020 Influenza,Unspecified 38695 Refused 01/23/2020 Shingrix Zoster Vaccine (HZV), Recombinant, Subunit, Adjuvanted 89439 Refused 01/23/2020 Pneumovax 23 09860 Refused 01/23/2020 Prevnar 13 35195 Refused 01/08/2018 Shingrix Zoster Vaccine (HZV), Recombinant, Subunit, Adjuvanted 07690 Refused 01/08/2018 Zoster Vaccine 19689 Refused 01/08/2018 Pneumovax 23 85077 Refused 01/08/2018 Influenza Vaccin e Quadrivalent Preser/Antibiotic Free Im Use 10520 Refused 01/08/2018 Prevnar 13 Vital Signs Date [...] H/L Range Note Complete Blood Count 01/21/2021 [facility] 411 Directory Assistance Operator: [place] [address] [phone] WBC 7.8 x10*3/UL 4.1 - 10.9 RBC [...] 2.0 - 7.8 Basic Metabolic Panel 01/21/2021 [facility] 411 Directory Assistance Operator: [place] [address] [phone] Glucose 118 mg/dL High 74 - 99 [...] 60 mL/min >60 2 Lipid Profile 01/21/2021 [facility] 411 Directory Assistance Operator: [place] [address] [phone] Cholesterol 185 mg/dL 131 - 200 Triglycerides 122 mg/dL 30 - 150 HDL Cholesterol 40 mg/dL 35 - 60 LDL (Calculated) 121 CALC 50 - 159 Laboratory test finding 01/21/2021 [facility], 411 Directory Assistance Operator: [place] [address] [phone] Thyroid Stimulating Hormone 2.21 uIU/mL 0.3 6 - 3.74 Laboratory test finding 01/21/2021 [facility] 411 Directory Assistance Operator: [place] [address] [phone] Vitamin D 25-Hydroxy <pending> Laboratory test finding 12/17/2020 [facility], [address] Directory Assistance Operator: [place] [address] [phone] Fecal Immunochemical Test POSITIVE Abnormal Negati ve 1 100-125 mg/dL PRE-DIABET ES/FASTING >126 mg/dL DIABETES/FASTING 2 CHRONIC KIDNEY DISEASE STAGI NG PER NKF STAGE I & II GFR >= 60 NORMAL TO MILDLY DECREASED STAGE III GFR 30-59 MODERATELY DECREASED STAGE IV GFR 15-29 SEVERELY DECREASED STAGE V GFR <15 VERY LITTLE GFR LEFT ESRD GFR <15 ON CHILD AND FAMILY THERAPIST Procedures Date Code Description Status 01/02/2020 [id number] Mammogram Completed 12/27/2018 [id number] Mammogram Completed 12/27/2017 [id number] Mammogram Completed 11/07/2016 [id number] Mammogram Completed 03/17/2016 [id number] Colonoscopy Completed 11/05/2015 [id number] Mammogram Completed 10/30/2014 [id number] Mammogram Completed 10/24/2013 [id number] Mammogram Completed Medical Devices Description No Information [...] gnant neoplasm of rectum SHRAVAN Flowers JR 01/21/2021 Z13.820 Encounter for screening for oste oporosis SHRAVAN Flowers JR 01/21/2021 M25.551 Pain in right hip SHRAVAN Hansen JR 12/17/2020 Z12.12 Encounter for screening for juanjo gnant neoplasm of rectum SHRAVAN Flowers JR Plan of Treatment Future Appointment(s):* 01/25/2022 12:40 pm - Nurse #2 at [facility] * 01/25/2022 1:00 pm - SHRAVAN Flowers JR at [facility] 01/21/2021 - SHRAVAN Flowers JR* Z00.00 Encounter for general adult medical examination without abnormal findings* Comments:* Labs are pending. SBE discussed and preformed monthly with proper technique reviewed. Heart healthy Mediterranean diet and 150 minutes of aerobic exercise discussed and reinforced as well as incorporated resitance training. RTC as scheduled or sooner PRN * E03.9 Hypothyroidism, unspecified * E55.9 Vitamin D deficiency, unspecified * M75.02 Adhesive capsulitis of left shoulder * H91.93 Unspecified hearing loss, bilateral * R03.0 Elevated blood-pressure reading, without diagnosis of hypertension * Z80.0 Family history of malignant neoplasm of digestive organs * Z12.12 Encounter for screening for malignant neoplasm of rectum * Z13.820 Encounter for screening for osteoporosis* New Xrays:* Dexa/Bone Density, Ordered: 01/21/21 * M25.551 Pain in right hip Functional Status Description No Information Available Mental Status Description No Information Available Referrals Refer to Reason for Referral Status Appt Date Carlo Cullen MD CONSULT COLONOSCOPY/POSITIVE FIT TEST Shravan peralta Notified 02/09/[address] [place] [address] [phone]
--- OUTSIDE RECORDS SUMMARY | 2021-03-29 12:09 | CCD | Continuity of Care Document ---
Author Author Blanche MCGILL PA Organization Unknown Address [address] [address] Phone [phone] Care Team Providers Care Email Campaign Specialist Name Role Phone Yasir Avery II, MD AUTM [phone] Austin Arreaga MD AUTM [phone] Wenceslao Varner MD AUTM [phone] Anthony Mcgill AUTM [phone] Problems Description No Information Available Social History [...] Code Status Date Vaccine Reaction Lot # [id number] Given 03/24/2015 PPD PPD read as neg 11-5-15 ( 0mm) Ric Wiley, RN [id number] [id number] Given 08/07/2013 Adacel- Tetanus Diphtheria Pertussis (Age64 & Under) [id number] U-Flu Refused 01/23/2020 Influenza,Unspecified 11005 Refused 01/23/2020 Shingrix Zoster Vaccine (HZV), Recombinant, Subunit, Adjuvanted 42178 Refused 01/23/2020 Pneumovax 23 17624 Refused 01/23/2020 Prevnar 13 29963 Refused 01/08/2018 Shingrix Zoster Vaccine (HZV), Recombinant, Subunit, Adjuvanted 61316 Refused 01/08/2018 Zoster Vaccine 29298 Refused 01/08/2018 Pneumovax 23 27995 Refused 01/08/2018 Influenza Vaccin e Quadrivalent Preser/Antibiotic Free Im Use 36744 Refused 01/08/2018 Prevnar 13 Vital Signs Date [...] H/L Range Note Complete Blood Count 01/21/2021 [facility] Mandolin Repairer: [place] [address] [phone] WBC 7.8 x10*3/UL 4.1 - 10.9 RBC [...] 2.0 - 7.8 Basic Metabolic Panel 01/21/2021 [facility] Mandolin Repairer: Dr Liban [place] [address] [phone] Glucose 118 mg/dL High 74 - 99 [...] 60 mL/min >60 2 Lipid Profile 01/21/2021 [facility] Mandolin Repairer: Dr Liban [place] [address] [phone] Cholesterol 185 mg/dL 131 - 200 Triglycerides 122 mg/dL 30 - 150 HDL Cholesterol 40 mg/dL 35 - 60 LDL (Calculated) 121 CALC 50 - 159 Laboratory test finding 01/21/2021 [facility] Mandolin Repairer: Dr Liban [place] [address] [phone] Thyroid Stimulating Hormone 2.21 uIU/mL 0.3 6 - 3.74 Laboratory test finding 01/21/2021 [facility] Mandolin Repairer: [place] [address] [phone] Vitamin D 25-Hydroxy 47.5 ng/ml 24.0 - 80.0 3 Laboratory test finding 12/17/2020 [facility] kenzie lindsey Mandolin Repairer: [place] [address] [phone] Fecal Immunochemical Test POSITIVE Abnormal Negati ve 1 100-125 mg/dL PRE-DIABET ES/FASTING >126 mg/dL DIABETES/FASTING 2 CHRONIC KIDNEY DISEASE STAGI NG PER NKF STAGE I & II GFR >= 60 NORMAL TO MILDLY DECREASED STAGE III GFR 30-59 MODERATELY DECREASED STAGE IV GFR 15-29 SEVERELY DECREASED STAGE V GFR <15 VERY LITTLE GFR LEFT ESRD GFR <15 ON BEEF TRIMMER 3 This test was performed [employer] Vitamin D immunoassay kit. Values obtained with different assay methods should not be used interchangeably. Procedures Date Code Description Status 01/21/2021 42203 Est Prevent Med (65Yrs&Ovr) Comp leted 01/02/2020 [id number] Mammogram Completed 12/27/2018 [id number] Mammogram Completed 12/27/2017 [id number] Mammogram Completed 11/07/2016 [id number] Mammogram Completed 03/17/2016 [id number] Colonoscopy Completed 11/05/2015 [id number] Mammogram Completed 10/30/2014 [id number] Mammogram Completed 10/24/2013 [id number] Mammogram Completed Medical Devices Description No Information Available Encounters Type Date Location Provider Dx Diagnosis Office Visit 01/21/2021 11:00a [facility] Luis M Mcgill JR PA [...] 01/25/2022 12:40 pm - Nurse #2 at [facility] * 01/25/2022 1:00 pm - SHRAVAN Flowers JR at [facility] 01/21/2021 - SHRAVAN Flowers JR* [...] hearing loss, bilateral* Comments:* Refer down to [facility] for further evaluations. She does [...] COLONOSCOPY/POSITIVE FIT TEST Shravan peralta Notified 02/09/[address] [place] [address] [phone]
--- OUTSIDE RECORDS SUMMARY | 2021-03-29 12:09 | CCD ---
Continuity of Care Document (CCD) Created on: 01/21/2021 Blanche Fuentes External Reference #: [id number] : [id number] Sex: Female Author Author Blanche CMGILL PA Organization Unknown Address [address] [address] Phone [phone] Care Team Providers Care Library Associate Name Role Phone Yasir Avery II, MD AUTM [phone] Austin Arreaga MD AUTM [phone] Wenceslao Varner MD AUTM [phone] Anthony Mcgill AUTM [phone] Problems Description No Information Available Social History [...] Code Status Date Vaccine Reaction Lot # [id number] Given 03/24/2015 PPD PPD read as neg 11-5-15 ( 0mm) Ric Wiley, RN [id number] 79178 Given 08/07/2013 Adacel- Tetanus Diphtheria Pertussis (Age64 & Under) [id number] U-Flu Refused 01/23/2020 Influenza,Unspecified 20313 Refused 01/23/2020 Shingrix Zoster Vaccine (HZV), Recombinant, Subunit, Adjuvanted 74946 Refused 01/23/2020 Pneumovax 23 14427 Refused 01/23/2020 Prevnar 13 68248 Refused 01/08/2018 Shingrix Zoster Vaccine (HZV), Recombinant, Subunit, Adjuvanted 01082 Refused 01/08/2018 Zoster Vaccine 11464 Refused 01/08/2018 Pneumovax 23 04728 Refused 01/08/2018 Influenza Vaccin e Quadrivalent Preser/Antibiotic Free Im Use 53384 Refused 01/08/2018 Prevnar 13 Vital Signs Date [...] Date Facility Test Result H/L Range Note Laboratory test finding 01/21/2021 [facility] [place]: [place] [address] [phone] TSH <pending> Laboratory test finding 01/21/2021 [facility] [place]: [place] [address] [phone] Vitamin D 25-Hydroxy <pending> Laboratory test finding 12/17/2020 [facility] [place]: [place] [address] [phone] Fecal Immunochemical Test POSITIVE Abnormal Negati ve Procedures Date Code Description Status 01/02/2020 [id number] Mammogram Completed 12/27/2018 [id number] Mammogram Completed 12/27/2017 [id number] Mammogram Completed 11/07/2016 [id number] Mammogram Completed 03/17/2016 [id number] Colonoscopy Completed 11/05/2015 [id number] Mammogram Completed 10/30/2014 [id number] Mammogram Completed 10/24/2013 [id number] Mammogram Completed Medical Devices Description No Information Available Encounters Description No Information Available Assessments Date Code Description Provider 12/17/2020 Z12.12 Encounter for screening for juanjo gnant neoplasm of rectum SHRAVAN Flowers JR Plan of Treatment Future Appointment(s):* 01/25/2022 1:00 pm - SHRAVAN Flowers JR at [facility] 01/21/2021 - SHRAVAN Flowers JR* All * New Xrays:* Dexa/Bone Density, Ordered: 01/21/21 Functional Status Description No Information Available Mental Status Description No Information Available Referrals Refer to Reason for Referral Status Appt Date Carlo Cullen MD CONSULT COLONOSCOPY/POSITIVE FIT TEST Shravan peralta Notified 02/09/2021 [address] [facility] [address] [phone]
--- OUTSIDE RECORDS SUMMARY | 2021-03-29 12:09 | CCD ---
Author Author [facility] Organization [facility] Address Unknown Phone Unavailable Care Team Providers Care Fabric Designer Name Role Phone David Cullen MD Unavailable Unavailable David Cullen MD Unavailable Unavailable David Cullen MD Unavailable Unavailable David Cullen MD Unavailable Unavailable David Cullen MD Unavailable Unavailable David Cullen MD Unavailable Unavailable David Cullen MD Unavailable Unavailable David Cullen MD Unavailable Unavailable David Cullen MD Unavailable Unavailable David Cullen MD Unavailable Unavailable David Cullen MD Unavailable Unavailable David Cullen MD Unavailable Unavailable David Cullen MD Unavailable Unavailable David Cullen MD Unavailable Unavailable David Cullen MD Unavailable Unavailable David Cullen MD Unavailable Unavailable David Cullen MD Unavailable Unavailable David Cullen MD Unavailable Unavailable David Cullen MD Unavailable Unavailable David Cullen MD Unavailable Unavailable David Cullen MD Unavailable Unavailable David Cullen MD Unavailable Unavailable David Cullen MD Unavailable Unavailable David Cullen MD Unavailable Unavailable David Cullen MD Unavailable Unavailable David Cullen MD Unavailable Unavailable David Cullen MD Unavailable Unavailable David Cullen MD Unavailable Unavailable David Cullen MD Unavailable Unavailable David Cullen MD Unavailable Unavailable David Cullen MD Unavailable Unavailable David Cullen MD Unavailable Unavailable David Cullen MD Unavailable Unavailable David Cullen MD Unavailable Unavailable David Cullen MD Unavailable Unavailable David Cullen MD Unavailable Unavailable David Cullen MD Unavailable Unavailable David Cullen MD Unavailable Unavailable David Cullen MD Unavailable Unavailable David Cullen MD Unavailable Unavailable David Cullen MD Unavailable Unavailable David Cullen MD Unavailable Unavailable David Cullen MD Unavailable Unavailable David Cullen MD Unavailable Unavailable David Cullen MD Unavailable Unavailable David Cullen MD Unavailable Unavailable David Cullen MD Unavailable Unavailable David Cullen MD Unavailable Unavailable David Cullen MD Unavailable Unavailable David Cullen MD Unavailable Unavailable Destiny Thapa MD Unavailable Unavailable Destiny Thapa MD Unavailable Unavailable Destiny Thapa MD Unavailable Unavailable Destiny Thapa MD Unavailable Unavailable Destiny Thapa MD Unavailable Unavailable PICKERAL JR, J HORTENCIA PA-C Unavailable Unavailable PICKERAL JR, J HORTENCIA PA-C Unavailable Unavailable PICKERAL JR, J HORTENCIA PA-C Unavailable Unavailable PICKERAL JR, J HORTENCIA PA-C Unavailable Unavailable PICKERAL JR, J HORTENCIA PA-C Unavailable Unavailable PICKERAL JR, J HORTENCIA PA-C Unavailable Unavailable PICKERAL JR, J HORTENCIA PA-C Unavailable Unavailable PICKERAL JR, J HORTENCIA PA-C Unavailable Unavailable PICKERAL JR, J HORTENCIA PA-C Unavailable Unavailable PICKERAL JR, J HORTENCIA PA-C Unavailable Unavailable PICKERAL JR, J HORTENCIA PA-C Unavailable Unavailable PICKERAL JR, J HORTENCIA PA-C Unavailable Unavailable PICKERAL JR, J HORTENCIA PA-C Unavailable Unavailable PICKERAL JR, J HORTENCIA PA-C Unavailable Unavailable PICKERAL JR, J HORTENCIA PA-C Unavailable Unavailable PICKERAL JR, J HORTENCIA PA-C Unavailable Unavailable PICKERAL JR, J HORTENCIA PA-C Unavailable Unavailable PICKERAL JR, J HORTENCIA PA-C Unavailable Unavailable PICKERAL JR, J HORTENCIA PA-C Unavailable Unavailable PICKERAL JR, J HORTENCIA PA-C Unavailable Unavailable PICKERAL JR, J HORTENCIA PA-C Unavailable Unavailable PICKERAL JR, J HORTENCIA PA-C Unavailable Unavailable PICKERAL JR, J HORTENCIA PA-C Unavailable Unavailable PICKERAL JR, J HORTENCIA PA-C Unavailable Unavailable PICKERAL JR, J HORTENCIA PA-C Unavailable Unavailable PICKERAL JR, J HORTENCIA PA-C Unavailable Unavailable PICKERAL JR, J HORTENCIA PA-C Unavailable Unavailable FORNI, R JOE DPM Unavailable Unavailable FORNI, R JOE DPM Unavailable Unavailable FORNI, R JOE DPM Unavailable Unavailable FORNI, R JOE DPM Unavailable Unavailable FORNI, R JOE DPM Unavailable Unavailable FORNI, R JOE DPM Unavailable Unavailable FORNI, R JOE DPM Unavailable Unavailable FORNI, R JOE DPM Unavailable Unavailable FORNI, R JOE DPM Unavailable Unavailable FORNI, R JOE DPM Unavailable Unavailable KATHERINE, J ALISSA DPM PC Unavailable Unavailable KATHERINE, J ALISSA DPM PC Unavailable Unavailable KATHERINE, J ALISSA DPM PC Unavailable Unavailable KATHERINE, J ALISSA DPM PC Unavailable Unavailable KATHERINE, J ALISSA DPM PC Unavailable Unavailable KATHERINE, J ALISSA DPM PC Unavailable Unavailable KATHERINE, J ALISSA DPM PC Unavailable Unavailable KATHERINE, J ALISSA DPM PC Unavailable Unavailable KATHERINE, J ALISSA DPM PC Unavailable Unavailable KATHERINE, J ALISSA DPM PC Unavailable Unavailable KATHERINE, J ALISSA DPM PC Unavailable Unavailable KATHERINE, J ALISSA DPM PC Unavailable Unavailable KATHERINE, J ALISSA DPM PC Unavailable Unavailable KATHERINE, J ALISSA DPM PC Unavailable Unavailable KATHERINE, J ALISSA DPM PC Unavailable Unavailable KATHERINE, J ALISSA DPM PC Unavailable Unavailable KATHERINE, J ALISSA DPM PC Unavailable Unavailable KATHERINE, J ALISSA DPM PC Unavailable Unavailable KATHERINE, J ALISSA DPM PC Unavailable Unavailable KATHERINE, J ALISSA DPM PC Unavailable Unavailable KATHERINE, J ALISSA DPM PC Unavailable Unavailable KATHERINE, J ALISSA DPM PC Unavailable Unavailable KATHERINE, J ALISSA DPM PC Unavailable Unavailable KATHERINE, J ALISSA DPM PC Unavailable Unavailable KATHERINE, J ALISSA DPM [facility] Unavailable Unavailable KATHERINE, J ALISSA DPM PC Unavailable Unavailable KATHERINE, J ALISSA DPM PC Unavailable Unavailable KATHERINE, J ALISSA DPM [facility] Unavailable Unavailable Re-disclosure Warning The records that you are about to access may contain information from federally-assisted alcohol or drug abuse programs. If such information is present, then the following federally mandated warning applies: This information has been disclosed to you from records protected by federal confidentiality rules (42 CFR part 2). The federal rules prohibit you from making any further disclosure of this information unless further disclosure is expressly permitted by the written consent of the person to whom it pertains or as otherwise permitted by 42 CFR part 2. A general authorization for the release of medical or other information is NOT sufficient for this purpose. The Federal rules restrict any use of the information to criminally investigate or prosecute any alcohol or drug abuse patient.The records that you are about to access may contain highly sensitive health information, the redisclosure of which is protected by Article 27-F of the [facility] Public Health law. If you continue you may have access to information: Regarding HIV / AIDS; Provided by facilities licensed or operated by the [facility] Office of Mental Health; or Provided by the [facility] Office for People With Developmental Disabilities. If such information is present, then the following [facility] mandated warning applies: This information has been disclosed to you from confidential records which are protected by state law. State law prohibits you from making any further disclosure of this information without the specific written consent of the person to whom it pertains, or as otherwise permitted by law. Any unauthorized further disclosure in violation of state law may result in a fine or prison sentence or both. A general authorization for the release of medical or other information is NOT sufficient authorization for further disc losure. Family History Family Member Name Family Member Gender Family Member Status Date o f Status Description Data Source(s) Unknown Unknown Problem [facility] ([facility] ) Encounters Encounter Providers Location Date Indications Data Source(s ) Outpatient Attender: Carlo Cullen MD Main Office 02/09/2021 10:00:00 AM EDT [facility] ([facility]) Outpatient Attender: HORTENCIA Hector 01/21/2021 11:00:00 AM EDT [facility] ([facility] ) Outpatient Attender: ALISSA MITCHELL 06/18/2020 01:40:00 PM EST 06/18/2020 01:40:00 PM [facility] Outpatient Attender: ALISSA MITCHELL 06/03/2020 01:06:00 PM EST - 06/03/2020 01:06:00 PM [facility] Outpatient Attender: Alissa Thapa MDAttender: JOE HWANG DPDestiny 04/27/2020 02:36:00 PM [facility] - 04/27/2020 02:36:00 PM [facility] Immunizations Vaccine Date Status Description Data Source(s) COVID-19 VACCINE Tj 08/21/2020 12:00:00 AM EDT completed [facility] Vaccine Series Complete: YESThis Data wa s Submitted to [facility] Via [employer]. Medications Medication Brand Name Start Date Product Form Dose Route Admi nistrative Instructions Pharmacy Instructions Status Indications Reaction Description Data Source(s) Sutab Sutab 02/09/2021 12:00:00 AM EDT active [facility] ([facility]) Covid-19 vaccine, Unspecified 08/21/2020 12:00:00 AM EDT completed [facility] ([facility]) Medication administered onsite Insurance Providers Payer name Policy type / Coverage type Policy ID Covered alliance party ID Covered alliance party's relationship to parry Policy Parry Plan Information Aetna Commercial [id number] Self [id number] [id number] [facility] e Pos II [facility] [id number] SP [id number] Medicare Blue Ppo Commercial [id number] Self [id number] Medicare Blue Ppo Commercial [id number] Self Medicare Blue Ppo Commercial [id number] Self [id number] MEDICARE BLUE PPO [id number] SP [id number] MEDICARE BLUE PPO 306 [id number] SP [id number] Medicare Blue Ppo Commercial [id number] Self [id number] MEDICARE BLUE PPO 306 [id number] SP [id number] WELLCARE [id number] SP [id number] WELLCARE [id number] SP [id number] Medicare Blue Ppo Commercial [id number] Self [id number] EXCELLUS BCBS B [id number] S [id number] [id number] [facility] Advantage Commercial [id number] Self [id number] [facility] Advantage Commercial [id number] Self [id number] Medicare Blue Ppo Commercial [id number] Self [id number] Medicare Blue Ppo Commercial [id number] Self [id number] Medicare Blue Ppo Commercial [id number] Self [id number] BS [place] [employer]/MX Commercial [id number] Self [id number] P HEALTH CARE O [id number] S [id number] BC BS [place] [id number] SP [id number] EXCELLUS BCBS P [id number] EXCELLUS BCBS P UNAVAILABLE S UNAV AILABLE [id number] [place] [id number] 18 [id number] [place]CARE [place] [id number] 18 [id number] WELLCARE O [id number] S [id number] [employer] [employer] Commercial [id number] Self [id number] [facility] Medigap Part B [id number] Self [id number] WELLCARE [id number] SP [id number] WELLCARE [id number] SP [id number] WELLCARE [id number] SP [id number] MEDICARE BLUE PPO 306 [id number] SP [id number] [employer] Commercial [id number] Self [id number] [facility] Part B [id number] Self [id number] Problems, Conditions, and Diagnoses Code Display Name Description Problem Type Effective Dates Data Source(s) M17443 Pain in left toe(s) Pain in left toe(s) Diagnosis 0 06/18/2020 01:40:00 PM [facility] [id number] Displaced fracture of proxim al phalanx of left lesser toe(s), subsequent encounter for fracture with routine healing Displaced fracture of proximal phalanx of left lesser toe(s), subsequent encounter for fracture with routine healing Diagnosis 06/18/2020 01:40:00 PM [facility] [id number] Pain in left foot Pain in left foot Diagnosis 06/03/2020 01:06:00 PM [facility] [id number] Displaced fracture of proxim al phalanx of left lesser toe(s), initial encounter for closed fracture Displaced fracture of proximal phalanx o f left lesser toe(s), initial encounter for closed fracture Diagnosis 0 06/03/2020 01:06:00 PM [facility] [id number] Screening for malignant neoplasm of colo n Screening for malignant neoplasm of colon Problem 02/09/2021 12:00:00 [facility] [id number] Pain in limb Pain in limb Problem 04/27/2020 12:00:00 A M EST [facility] ([facility]) [id number] Closed fracture of phalanx of foot Closed fractu re of phalanx of foot Problem 04/27/2020 12:00:00 AM EST [facility] ([facility]) Surgeries/Procedures Procedure Description Date Indications Data Source(s) Mammogram 02/17/2021 12:00:00 AM EDT M [facility] ([facility]) Bone Mineral Density Test 02/17/2021 12:00:00 AM EDT [facility] ([facility]) OFFICE OUTPATIENT NEW 30 MINUTES 02/09/2021 12:00:00 A M EDT [facility] ([facility]) PERIODIC PREVENTIVE MED EST PATIENT 65YRS&> 01/21/2021 12:00:00 AM EDT [facility] ([facility]) No Chargeable Service 06/03/2020 12:00:00 AM EST [facility] ([facility]) CLTX FX PHLX/PHLG OTH/THN GRT TOE W/O MANJ 04/27/2020 12:00:00 AM EST [facility] ([facility]) X-Ray Foot Complete 04/27/2020 12:00:00 AM EST [facility] ([facility]) Results ID Date Data Source [id number] 03/24/2021 09:40:00 AM EDT [facility] ([facility]) Name Value Range Interpretation Code Description Data Inna rce(s) Supporting Document(s) Coronavirus 2019 Nasopharygeal Laboratory test result [facility] ASSAY INFORMATION: Real Time RT-PCR NOTE: The COVID-19 assay has been cleared by the U.S. Food and Drug Administration under the Emergency Use Authorization (EUA). [employer] are designated as high complexity laboratories by the Clinical Laboratory Improvement Amendments of 1988(CLIA) and are qualified to perform this test. Not Detected ID Date Data Source [id number] 01/21/2021 11:24:00 AM EDT [facility] ([facility]) Name Value Range Interpretation Code Description Data Inna rce(s) Supporting Document(s) Calcidiol [Mass/volume] in Serum or Plasma 47.5 ng/mL 24.0-80.0 [facility] ([facility]) This test was performed using [employer] I P Vitamin D immunoassay kit. Values obtained with different assay methods should not be used interchangeably. ID Date Data Source [id number] 01/21/2021 11:24:00 AM EDT [facility] ([facility]) Name Value Range Interpretation Code Description Data Inna rce(s) Supporting Document(s) Thyrotropin [Units/volume] in Serum or Plasma by Detec tion limit <= 0.05 mIU/L 2.21 uIU/mL 0.36-3.74 [facility] ([facility] ) ID Date Data Source [id number] 01/21/2021 11:24:00 AM EDT [facility] ([facility]) Name Value Range Interpretation Code Description Data Inna rce(s) Supporting Document(s) Cholesterol in HDL [Mass/volume] in Serum or Plasma 40 mg/dL 35-60 [facility] ([facility]) Triglyceride [Mass/volume] in Serum or Plasma 122 mg/dL 30-150 [facility] ([facility]) Cholesterol [Mass/volume] in Serum or Plasma 185 mg/dL 131-200 [facility] ([facility]) Cholesterol in LDL [Mass/volume] in Serum or Plasma by calcu lation 121 CALC 50-159 [facility] ([facility]) ID Date Data Source [id number] 01/21/2021 11:24:00 AM EDT [facility] ([facility]) Name Value Range Interpretation Code Description Data Inna rce(s) Supporting Document(s) Glucose [Mass/volume] in Serum or Plasma 118 mg/dL 74-99 [facility] ([facility]) 100-125 mg/dL PRE-DIABETES/FASTING >126 mg/dL DIABETES/FASTING Sodium [Moles/volume] in Serum or Plasma 139 meq/L 136-145 [facility] ([facility]) Urea nitrogen [Mass/volume] in Serum or Plasma 18 mg/dL 7-18 [facility] ([facility]) Creatinine 0.9 mg/dL 0.6-1.3 [facility] Chloride [Moles/volume] in Serum or Plasma 105 meq/L 98-107 [facility] ([facility]) Potassium [Moles/volume] in Serum or Plasma 3.7 meq/L 3.5-5.1 [facility] ([facility]) Calcium [Mass/volume] in Serum or Plasma 9.0 mg/dL 8.5-10.1 [facility] Carbon dioxide, total [Moles/volume] in Serum or Plasma 27 meq/L 21 -32 [facility] Glomerular filtration rate/1.73 sq M pre dicted among non-blacks [Volume Rate/Area] in Serum or Plasma by Creatinine-based formula (MDRD) Laboratory test result [facility] Glomerular filtration rate/1.73 sq M pre dicted among blacks [Volume Rate/Area] in Serum or Plasma by Creatinine-based formula (MDRD) Laboratory test result [facility] ([facility]) <content>CHRONIC KIDNEY DISEASE STAGING PER NKF</content>
<content></content>
<content>STAGE I & II GFR >= 60 NORMAL TO MILDLY DECREASED</content>
<content>STAGE III GFR 30-59 MODERATELY DECREASED</content>
<content>STAGE IV GFR 15-29 SEVERELY DECREASED</content>
<content>STAGE V GFR <15 VERY LITTLE GFR LEFT</content>
<content>ESRD GFR <15 ON SUPERVISORY LIFEGUARD</content>
<content></content> ID Date Data Source [id number] 01/21/2021 11:24:00 AM EDT [facility] ([facility]) Name Value Range Interpretation Code Description Data Inna rce(s) Supporting Document(s) Leukocytes [#/volume] in Blood by Automated count 7.8 x10*3/UL 4.1-10 .9 [facility] Hemoglobin [Mass/volume] in Blood 13.6 g/dL 12.0-18.0 [facility] Erythrocytes [#/volume] in Blood by Automated count 4.78 x10*6/UL 4.2 0-6.30 [facility] ([facility]) MCH 28.5 pg 26.0-32.0 [facility] ([facility]) MCV 83.9 fL 80.0-97.0 [facility] ([facility]) Hematocrit [Volume Fraction] of Blood by Automated count 40.1 % 3 7.0-51.0 [facility] MCHC 34.0 g/dL 31.0-38.0 [facility] ([facility]) Erythrocyte distribution width [Ratio] by Automated count 13.5 % 11.6-13.7 [facility] Platelets [#/volume] in Blood by Automated count 380 x10*3/UL 140-440 [facility] MPV 8.0 FL 7.8-11.0 [facility] ([facility]) Lymph % 34.7 % 10.0-58.5 [facility] ([facility]) Mid % 7.4 % 1.7-9.3 [facility] ([facility]) Lymph # 2.7 x10*3/UL 0.6-4.1 [facility] ([facility]) Mid # 0.6 x10*3/UL 0.1-0.6 [facility] ([facility]) Neut % 57.9 % 37.0-92.0 [facility] ([facility]) Neut # 4.5 x10*3/UL 2.0-7.8 [facility] ([facility]) ID Date Data Source [id number] 01/21/2021 11:24:00 AM EDT [facility] ([facility] Name Value Range Interpretation Code Description Data Inna rce(s) Supporting Document(s) Calcidiol [Mass/volume] in Serum or Plasma 43.1 ng/mL 24.0-80.0 [facility] This test was performed using [employer] I P Vitamin D immunoassay kit. Values obtained with different assay methods should not be used interchangeably. ID Date Data Source [id number] 12/17/2020 09:01:00 AM EDT [facility] ([facility]) Name Value Range Interpretation Code Description Data Inna rce(s) Supporting Document(s) Hemoglobin.gastrointestinal [Presence] in Stool by Imm unologic method Laboratory test result Abnormal (applies to non-numeric results) [facility] ([facility]) ID Date Data Source [id number] 05/05/2020 12:00:00 AM EST [facility] Name Value Range Interpretation Code Description Data Inna rce(s) Supporting Document(s) SARS-CoV2 Rapid Antigen [facility] This lab was ordered by [facility] and reported by [facility]. Procedure Social History Code Duration Value Status Description Data Source(s ) Smoking 06/18/2020 12:00:00 AM EST Patient is a former smoker completed Patient is a former smoker [facility] ([facility]) Vital Signs ID Date Data Source UNK Name Value Range Interpretation Code Description Data Source(s) Systolic blood pressure 129 mm[Hg] 129 mm[Hg] [facility] Body height 61 [in_i] 61 [in_i] [facility] ([facility]) 5'1" Body weight 169.00 [lb_av] 169.00 [lb_av] [facility] ([facility]) Diastolic blood pressure 83 mm[Hg] 83 mm[Hg] [facility] Heart rate 70 /min 70 /min [facility] Body mass index (BMI) [Ratio] 31.9 kg/m2 31.9 k g/m2 [facility] ([facility]) Body weight 76.658 kg 76.658 kg [facility] ([facility]) Body temperature 97.6 [degF] 97.6 [degF] [facility]) Heart rate 80 /min 80 /min [facility] ([facility]) Systolic blood pressure 140 mm[Hg] 140 mm[Hg] [facility]) Diastolic blood pressure 76 mm[Hg] 76 mm[Hg] [facility] ([facility]) Body height 61.50 [in_i] 61.50 [in_i] [facility] 5'1.50" Body mass index (BMI) [Ratio] 31.2 kg/m2 31.2 k g/m2 [facility] ([facility]) Body weight 168.00 [lb_av] 168.00 [lb_av] [facility] ([facility]) Oxygen saturation in Arterial blood by Pulse oximetry 97 % 97 % [facility] ([facility])
--- OUTSIDE RECORDS SUMMARY | 2021-03-29 12:09 | CCD | Continuity of Care Document ---
Author Author Blanche CULLEN M.D Organization Unknown Address [address] [place] [id number] Phone [phone] Care Team Providers Care Senior Software Manager Name Role Phone Anthony Mcgill [facility] [phone] Problems Active Problems Provider Date Screening for [...] Qnty Indications Ordering Provide r Date [place] [id number] Tablets as directed 1box Carlo Cullen M.D. [...] F Results Description No Information Available Procedures Date Code Description Status 02/09/2021 12763 Office/Outpatient New Low MDM 30 -44 Minutes Completed Medical Devices Description No Information Available Encounters Type Date Location Provider Dx Diagnosis Office Visit 02/09/2021 10:00a Main Office Carlo Cullen M.D. R 19.5 Other fecal abnormalities Assessments Date Code Description Provider 02/09/2021 R19.5 Occult blood in stools Carlo Cullen M.D. Plan of Treatment Future Appointment(s):* 03/15/2021 6:45 am - Krysta[facility]Anne-Marie at Main Office * 03/29/2021 1:45 pm [...]
--- NOTE | 2021-03-29 13:12 | ROOR ---
Patient Name: Blanche Fuentes Procedure Date: 03/29/2021 12:52 PM Date of : 1950 Age: 70 Room: [facility] Gender: Female Note Status: Finalized Procedure: Total Colonoscopy to Cecum Indications: Positive fecal immunochemical test Providers: Carlo Cullen MD Referring MD: RADHA Sandoval Requesting Provider: Medicines: Monitored Anesthesia Care Complications: No immediate complications. Procedure: Pre-Anesthesia Assessment: - The heart rate, respiratory rate, oxygen saturations, blood pressure, adequacy of pulmonary ventilation, and response to care were monitored throughout the procedure. The Colonoscope was introduced through the anus and advanced to the cecum, identified by appendiceal orifice and ileocecal valve. The colonoscopy was performed without difficulty. The patient tolerated the procedure well. The quality of the bowel preparation was excellent. Findings: The perianal and digital rectal examinations were normal. Non-bleeding internal hemorrhoids were found during retroflexion. The hemorrhoids were small and Grade I (internal hemorrhoids that do not prolapse). Scattered small-mouthed diverticula were found in the recto-sigmoid colon, sigmoid colon and descending colon. Multiple small and large-mouthed diverticula were found in the recto-sigmoid colon, sigmoid colon and descending colon. The exam was otherwise without abnormality on direct and retroflexion views. The terminal ileum appeared normal. Impression: - Non-bleeding internal hemorrhoids. - Diverticulosis in the recto-sigmoid colon, in the sigmoid colon and in the descending colon. - Diverticulosis in the recto-sigmoid colon, in the sigmoid colon and in the descending colon. - The examination was otherwise normal on direct and retroflexion views. - The examined portion of the ileum was normal. - No specimens collected. - The exam was otherwise normal to the cecum. Recommendation: - Patient has a contact number available for emergencies. The signs and symptoms of potential delayed complications were discussed with the patient. Return to normal activities tomorrow. Written discharge instructions were provided to the patient. - High fiber diet. - Discharge patient to home. - Continue present medications. - Repeat colonoscopy is not recommended for screening purposes. - Return to referring physician. - The findings and recommendations were discussed with the patient. Procedure Code(s): --- Professional --- 36643, Colonoscopy, flexible; diagnostic, including collection of specimen(s) by brushing or washing, when performed (separate procedure) Diagnosis Code(s): --- Professional --- K64.0, First degree hemorrhoids R19.5, Other fecal abnormalities K57.30, Diverticulosis of large intestine without perforation or abscess without bleeding CPT copyright 2019 [employer]. All rights reserved. The codes documented in this report are preliminary and upon film booker review may be revised to meet current compliance requirements. Carlo Cullen MD Carlo Cullen MD 03/29/2021 1:12:26 PM Electronically signed by Carlo Cullen MD Number of Addenda: 0 Note Initiated On: 03/29/2021 12:52 PM Estimated Blood Loss: Estimated blood loss: none.
[2021-03-29 13:30] VITALS: BP 186/88
== END 2021-03-29 13:38 | disposition home or self-care (01) ==
LOC: M OPP 12:03
PROVIDERS: ATTEND Internal Medicine Gastroenterology
DX: K64.0 First degree hemorrhoids (principal); R19.5 Other fecal abnormalities; K57.30 Diverticulosis of large intestine without perforation or abscess without bleeding

== ENCOUNTER → 2023-02-08 | Outpatient (CLI) | payer MEDICARE ==
[~2023-02-08] MED LIST changes: +AMOX600S51 PO; -AUGMSUS PO; +CIPR-249 PO; -LIDOCAINE 2% 100MG/5ML SDV (FOR ANES.) As Ordered ONE; +MUCI120T PO; -NS 1,000 ML IV ONE; -propofoL 200 MG/20 ML VIAL As Ordered ONE
== END ==
LOC: M WUC 12:59
PROVIDERS: ATTEND Physician Assistant Medical
DX: M54.2 Cervicalgia (principal); M47.812 Spondylosis without myelopathy or radiculopathy, cervical region